=== PATIENT | female | born 1950 | race Caucasian/White ===

== ENCOUNTER 2017-09-05 11:29 | Emergency (ER) | payer MEDICARE ==
[~2017-09-05] VITALS: Ht 167.6 cm; Wt 72.6 kg
--- OUTSIDE RECORDS SUMMARY | 2017-09-05 11:32 | XMS REPORT | Clinical Summary ---
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 Disp. Refills Start End Date Status Date loratadine (CLARITIN) 10 Take 1 tablet (10 mg 30 tablet 0 01/04/20 02/03/20 mg tablet total) by mouth daily for 17 17 30 days. Active Problems Not on file Encounters Date Type Specialty Care Team Description 01/03/2017 Emergency Emergency Medicine Catherine Gillespie MD Upper respiratory tract - Krystal Ogden MD infection, unspecified 01/04/2017 type (Primary Dx); Cough after 09/04/2016 Social History Tobacco Use Types Packs/Day Years Used Date Never Assessed Sex Assigned at Date Recorded Not on file Last Filed Vital Signs Vital Sign Reading Time Taken Blood Pressure 114/58 01/03/2017 11:50 PM CDT Pulse 91 01/03/2017 11:50 PM CDT Temperature 36.9 C (98.4 F) 01/03/2017 11:50 PM CDT Respiratory Rate 18 01/03/2017 11:50 PM CDT Oxygen Saturation 95% 01/03/2017 6:32 PM CDT Inhaled Oxygen - - Concentration Weight - - Height 167.6 cm (5' 6") 01/03/2017 6:28 PM CDT Body Mass Index - - Plan of Treatment Not on file Results Not on fileafter 09/04/2016 Insurance Payer Benefit Subscriber ID Type Phone Address Plan / Group [employer] x[employer] NG O MCR ADV [address] [address]
[2017-09-05] MEDS ORDERED: ZANTAC150 MG PO (11:49)
[2017-09-05] MEDS ORDERED: ZOLOFT50 MG (11:49)
[2017-09-05] MEDS ORDERED: ATORVASTATIN CA20 MG PO (11:49)
[2017-09-05] MEDS ORDERED: DIGOXIN125 MCG PO (11:49)
[2017-09-05] MEDS ORDERED: LASIX40 MG PO (11:49)
[2017-09-05] MEDS ORDERED: PIOGLITAZONE30 MG PO (11:49)
[2017-09-05] MEDS ORDERED: LEVEMIR100 UNIT/1 (11:49)
[2017-09-05] MEDS ORDERED: IBUPROFEN 600 MG TAB PO STA (11:50)
[2017-09-05] MEDS ORDERED: DIPHENHYDRAMINE HCL 25 MG CAP PO ONE (12:00)
[2017-09-05] MEDS ORDERED: DEXAMETHASONE SOD PHOS 10 MG/1 ML VIAL INJ ONE (12:00)
[2017-09-05 13:00] LABS: BILIRUBIN,URINE NEGATIVE (NEGATIVE); CLARITY,URINE CLEAR (CLEAR); COLOR,URINE YELLOW (YELLOW); KETONES,URINE NEGATIVE (NEGATIVE); LEUKOCYTE ESTERASE ,URINE TRACE (NEGATIVE); NITRITE,URINE NEGATIVE (NEGATIVE); PROTEIN,URINE DIPSTICK NEGATIVE (NEGATIVE); URINE UROBILINOGEN 0.2 mg/dL (0.2 - 1)
[2017-09-05 13:12] LABS: BACTERIA,URINE RARE /HPF; EPITHELIAL CELLS,URINE FEW /LPF; WBC,URINE (MAN) 0-5 /HPF (0-5)
--- NOTE | 2017-09-05 13:27 | Diagnostic Imaging Report ---
Exam: Head CT without contrast History: Severe headache, frontal sinus pain, dizziness Comparison studies: None Technique: Axial images were obtained from the skull base to the vertex. Coronal and sagittal images reconstructed from the axial data. Intravenous contrast: None Findings: Scalp: No abnormalities. Bones: No fractures, blastic or lytic lesions. Brain sulci: Mildly prominent Ventricles: Mild compensatory dilatation. No hydrocephalus. Extra-axial spaces: No masses, no fluid collection. Parenchyma: No mass, acute hemorrhage or acute cortical vascular insults. Chronic cortical-subcortical insult in the right inferior parietal lobule with encephalomalacia and gliosis. A few subtle hypodensities in the supratentorial white matter are nonspecific but may reflect chronic microvascular ischemic changes. Sellar/suprasellar region: No abnormalities. Craniocervical junction: Patent foramen magnum. No Chiari one malformation. Incidental findings: Bilateral sphenoid sinus opacification with obstructed sphenoethmoidal recesses. Hyperdensity within the left sphenoid sinus may reflect inspissated secretions reflect fungal etiology. Chronic reactive osteitis along the schneider of the sphenoid sinuses and internal calcification in the left sphenoid sinus compatible with sequela of chronic inflammation. The posterior left ethmoids are also partially opacified. Atherosclerotic calcifications in the carotid siphons. IMPRESSION: 1. No acute intracranial abnormalities. 2. Mild generalized volume loss. 3. Small chronic right parietal cortical/subcortical insult. 4. Mild chronic microvascular ischemic changes. 5. Inflammatory changes in the sphenoid sinuses and posterior left ethmoids. Signed by: Dr. Tre Call M.D. on 09/05/2017 1:23 PM
[2017-09-05 14:11] VITALS: BP 136/67
== END 2017-09-05 14:30 | disposition home or self-care (01) ==
LOC: ER 11:29
DX: R51 Headache (principal); J32.2 Chronic ethmoidal sinusitis; J32.3 Chronic sphenoidal sinusitis; E11.9 Type 2 diabetes mellitus without complications; I25.10 Atherosclerotic heart disease of native coronary artery without angina pectoris; E78.5 Hyperlipidemia, unspecified; K27.9 Peptic ulcer, site unspecified, unspecified as acute or chronic, without hemorrhage or perforation; F32.9 Major depressive disorder, single episode, unspecified
CPT/HCPCS: 70450; 81001; 99284; J1100